=== PATIENT | male | born 1965 | race Caucasian/White ===

== ENCOUNTER 2020-12-17 21:06 | Emergency (ER) | payer OTHER ==
[~2020-12-17] VITALS: Ht 193 cm; Wt 157.9 kg
[2020-12-17 21:14] VITALS: BP_SYST 160
[2020-12-18] MEDS ORDERED: HYDR-3917 PO ×2 (00:30→00:34)
[2020-12-18] MEDS ORDERED: HYDROcodone/ACETAMIN 5-325 MG TAB (NORCO/ VICODIN) PO ONE (00:45)
[2020-12-18 00:56] VITALS: BP_SYST 145
== END 2020-12-18 00:56 | disposition home or self-care (01) ==
LOC: SED 21:06
DX: R07.9 Chest pain, unspecified (principal); M25.561 Pain in right knee; Z88.1 Allergy status to other antibiotic agents; Z79.899 Other long term (current) drug therapy; V43.52XA Car driver injured in collision with other type car in traffic accident, initial encounter; Y93.89 Activity, other specified; Y92.89 Other specified places as the place of occurrence of the external cause; Y99.8 Other external cause status
CPT/HCPCS: 71045; 93005; 99283